=== PATIENT | female | born 1995 | race Caucasian/White ===

== ENCOUNTER 2018-10-18 12:05 | Day surgery (SDC) | payer OTHER ==
[~2018-10-18 12:05] MED LIST: CEFAZOLIN 2 GM/50 ML (PMX) 50 ML IVPB; SOD CHLORIDE 0.9% 1,000 ML IV
[2018-10-18] MEDS ORDERED: MIDAZOLAM 1 MG/ML 2 ML INJ (14:27)
[2018-10-18] MEDS ORDERED: FENTAnyl 50 MCG/ML VIAL (14:27)
[2018-10-18] MEDS: LIDOCAINE 1% (MPF) 30 ML INJ (14:59)
[2018-10-18] MEDS: BUPIVACAINE 0.25%/EPI (SDV) 30 ML INJ (14:59)
[2018-10-18] MEDS ORDERED: PROPOFOL 20 ML (15:15)
[2018-10-18] MEDS ORDERED: NEOSTIGMINE 3 MG/3 ML SYRINGE (15:15)
[2018-10-18] MEDS ORDERED: GLYCOPYRROLATE 0.4 MG INJ (15:15)
[2018-10-18] MEDS ORDERED: LIDOCAINE 2% (SDV) 5 ML INJ (15:15)
[2018-10-18] MEDS ORDERED: ROCURONIUM 50 MG INJ (15:15)
[2018-10-18] MEDS ORDERED: ONDANSETRON 4 MG INJ (15:16)
[2018-10-18] MEDS ORDERED: CEFAZOLIN 1 GM INJ (15:16)
[2018-10-18] MEDS ORDERED: HYDROmorphONE 1 MG/5 ML IV SYRINGE IV ×3 (15:30→16:00)
[2018-10-18] MEDS ORDERED: ONDANSETRON 4 MG INJ IV (15:30)
[2018-10-18] MEDS ORDERED: OXYCODONE/ACETAMINOPHEN (5/325) TAB PO (15:30)
[2018-10-18] MEDS ORDERED: MEPERIDINE 25 MG INJ IV (15:30)
[2018-10-18] MEDS ORDERED: DIPHENHYDRAMINE 50 MG INJ IV (15:30)
[2018-10-18] MEDS ORDERED: METOCLOPRAMIDE 10 MG INJ IV (15:30)
[2018-10-18] MEDS: FENTAnyl 50 MCG/ML VIAL IV (15:59)
[2018-10-18] MEDS: OXYCODONE/ACETAMINOPHEN (5/325) TAB PO (16:38)
== END 2018-10-18 17:20 | disposition home or self-care (01) ==
LOC: SDS 12:05
DX: L05.91 Pilonidal cyst without abscess (principal)
CPT/HCPCS: 11771